=== PATIENT | female | born 2000 | race Caucasian/White ===

== ENCOUNTER → 2020-03-12 | Outpatient (REF) | payer OTHER ==
[~2020-03-12] MED LIST: AFRISPR3; AMOX875T2; NAPR-885; PERI12LIQ; PRED20TA PO; PSEU120T3 PO; TRI-TAB
[2020-04-09 09:30] LABS: APPEARANCE, URINE CLEAR (CLEAR); BACTERIA, URINE AUTO NEGATIVE (NEGATIVE); BILIRUBIN, URINE AUTO NEGATIVE (NEGATIVE); BLOOD, URINE BLOOD NEGATIVE (NEGATIVE); COLOR, URINE YELLOW (YELLOW); GLUCOSE, URINE (UA) AUTO NEGATIVE (NEGATIVE); KETONE, URINE AUTO NEGATIVE (NEGATIVE); LEUKOCYTE ESTERASE, URINE AUTO NEGATIVE (NEGATIVE); MUCUS, URINE SMALL (NEGATIVE); NITRITE, URINE AUTO NEGATIVE (NEGATIVE); PROTEIN, URINE AUTO NEGATIVE (NEGATIVE); RBC, URINE AUTO 1 /HPF (0-3); SQUAMOUS EPITHELIAL CELL UR AU 2 /HPF (0-6); UROBILINOGEN, URINE AUTO 0.2 mg/dL (0.0-2.0); WBC, URINE AUTO 3 /HPF (0-3)
== END ==
LOC: M LAB REF 09:44
PROVIDERS: ATTEND Physician Assistant Medical
DX: N39.0 Urinary tract infection, site not specified (principal)

== ENCOUNTER 2020-05-17 13:16 | Emergency (ER) | payer OTHER ==
[~2020-05-17] VITALS: Ht 157.5 cm; Wt 58.3 kg
[2020-05-17] MEDS ORDERED: NAPR-885 (13:34)
[2020-05-17] MEDS ORDERED: AMOX875T2 (13:34)
[2020-05-17] MEDS ORDERED: PERI12LIQ (13:34)
[2020-05-17] MEDS ORDERED: AMPICILLIN SOD/SULBACTAM SOD 3 GM in D5W MINI-BAG PLUS 100 ML IV ONE (14:45)
[2020-05-17] MEDS ORDERED: dexameTHASONE 20MG/5ML VIAL (J1100 PER 1MG) IV ONE (14:45)
[2020-05-17] MEDS ORDERED: NS 1,000 ML IV ONE (14:45)
[2020-05-17 15:06] LABS: HEMATOCRIT 40.8 % (36.0-47.0); HEMOGLOBIN 13.3 g/dl (12.0-15.5); MEAN CORPUSCULAR HEMOGLOBIN 29.6 pg (27.0-33.0); MEAN CORPUSCULAR HGB CONC 32.6 g/dl (32.0-36.5); MEAN CORPUSCULAR VOLUME 90.7 fl (80.0-96.0); PLATELET COUNT, AUTOMATED 179 10^3/uL (150-450); WHITE BLOOD COUNT 7.5 10^3/uL (4.0-10.0)
[2020-05-17] MEDS ORDERED: ISOVUE-370 76% 100ML VIAL As Ordered ONE (15:17)
[2020-05-17 15:28] LABS: ALBUMIN 3.6 GM/DL (3.2-5.2); ALT/SGPT 101 U/L (12-78); BILIRUBIN,DIRECT 0.2 MG/DL (0.0-0.2); BILIRUBIN,TOTAL 0.8 MG/DL (0.2-1.0); C REACTIVE PROTEIN QUANTITATIV 5.12 MG/DL (0.00-0.30); TOTAL PROTEIN 7.5 GM/DL (6.4-8.2)
[2020-05-17 15:35] LABS: ATYPICAL LYMPH 15 % (0-5); LYMPHOCYTES 22 % (16-44); MONOCYTES 5 % (0-5); NEUTROPHILS 56 % (28-66)
[2020-05-17 15:37] LABS: PLATELET ESTIMATE NORMAL (NORMAL)
[2020-05-17 15:55] LABS: ERYTHROCYTE SEDIMENTATION RATE 35 mm/hr (0-20)
--- NOTE | 2020-05-17 16:01 | REPVR ---
PROCEDURE INFORMATION: Exam: CT Neck With Contrast Exam date and time: 05/17/2020 3:46 PM Age: 20 years old Clinical indication: Abscess, tonsil; Additional info: ? Left tonsil abscess TECHNIQUE: Imaging protocol: Computed tomography images of the neck with intravenous contrast. Radiation optimization: All CT scans at this facility use at least one of these dose optimization techniques: automated exposure control; mA and/or kV adjustment per patient size (includes targeted exams where dose is matched to clinical indication); or iterative reconstruction. Contrast material: ISOVUE 370; Contrast volume: 75 ml; Contrast route: INTRAVENOUS (IV); COMPARISON: No relevant prior studies available. FINDINGS: Paranasal sinuses: Complete opacification of the left maxillary sinus. Pharynx: Enlarged bilateral palatine tonsils, left greater than right. No definite evidence of peritonsillar abscess. Larynx: Unremarkable. Normal epiglottis. Retropharyngeal space: Unremarkable. Submandibular/Parotid glands: Unremarkable. Thyroid: Unremarkable. No enlarged or calcified nodules. Lymph nodes: Prominent bilateral cervical chain lymph nodes, likely reactive. Trachea: Unremarkable. Lungs: Unremarkable as visualized. Bones/joints: No acute osseus lesions or fractures. Soft tissues: Unremarkable. No significant soft tissue swelling. IMPRESSION: 1. Enlarged bilateral palatine tonsils, without evidence of peritonsillar abscess. Findings concerning for pharyngitis/tonsillitis. 2. Prominent bilateral cervical chain lymph nodes, likely reactive. 3. Left maxillary sinusitis. Electronically signed by: Bryce Crow On 05/17/2020 16:01:19 PM
[2020-05-17 16:19] LABS: MONO SCRN POSITIVE (NEGATIVE)
[2020-05-17] MEDS ORDERED: PRED20TA PO (16:45)
[2020-05-17 17:08] VITALS: BP 117/70
== END 2020-05-17 17:46 | disposition home or self-care (01) ==
LOC: M ED 13:16
DX: J03.90 Acute tonsillitis, unspecified (principal); B27.90 Infectious mononucleosis, unspecified without complication; J01.00 Acute maxillary sinusitis, unspecified; R51.9 Headache, unspecified; F41.9 Anxiety disorder, unspecified; Z79.899 Other long term (current) drug therapy
CPT/HCPCS: 70491; 80047; 80076; 84702; 85025; 85652; 86140; 86308; 96361; 96365; 96375; 99283; J1100; Q9967

== ENCOUNTER 2020-05-19 14:39 | Emergency (ER) | payer OTHER ==
[~2020-05-19] VITALS: Ht 157.5 cm; Wt 58.0 kg
[2020-05-19 14:39] VITALS: BP 134/81
[~2020-05-19 14:39] MED LIST changes: -AFRISPR3; -PSEU120T3 PO; -TRI-TAB
[2020-05-19] MEDS ORDERED: TRI-TAB (14:46)
[2020-05-19] MEDS ORDERED: dexameTHASONE 20MG/5ML VIAL (J1100 PER 1MG) IM ONE (16:30)
[2020-05-19] MEDS ORDERED: PSEU120T3 PO (16:30)
[2020-05-19] MEDS ORDERED: AFRISPR3 (16:31)
== END 2020-05-19 18:02 | disposition home or self-care (01) ==
LOC: M ED 14:39
DX: B27.90 Infectious mononucleosis, unspecified without complication (principal); J02.9 Acute pharyngitis, unspecified; Z79.899 Other long term (current) drug therapy
CPT/HCPCS: 96372; 99282; J1100

== ENCOUNTER 2020-05-19 18:01 | Emergency (ER) | payer OTHER ==
[~2020-05-19 18:01] MED LIST changes: +AFRISPR3; +PSEU120T3 PO; +TRI-TAB
[2020-05-19 18:02] VITALS: BP 130/77
== END 2020-05-19 20:35 | disposition left against medical advice (07) ==
LOC: M ED 18:01
DX: Z53.21 Procedure and treatment not carried out due to patient leaving prior to being seen by health care provider (principal)